=== PATIENT | female | born 1965 | race Caucasian/White ===

== ENCOUNTER 2020-03-04 10:24 | Outpatient (REF) | payer OTHER, SELFPAY | END 2020-03-04 10:25 | disposition home or self-care (01) | LOC: HO.LAB 10:24 | PROVIDERS: PCP Internal Medicine; Visit Provider Internal Medicine | DX: Z20.828 Contact with and (suspected) exposure to other viral communicable diseases (principal) | CPT/HCPCS: C9803; U0003 ==

== ENCOUNTER 2021-01-29 13:08 | Outpatient (REF) | payer BC, SELFPAY | END 2021-01-29 13:09 | disposition home or self-care (01) | LOC: HO.LAB 13:08 | PROVIDERS: Visit Provider Internal Medicine | DX: Z20.822 Contact with and (suspected) exposure to COVID-19 (principal) | CPT/HCPCS: C9803; U0003; U0005 ==

== ENCOUNTER 2021-03-25 11:07 | Outpatient (REF) | payer BC, SELFPAY ==
--- NOTE | ~2021-03-25 | MM_ITS ---
EXAMINATION: MM SCREENING DIGITAL BREAST TOMOSYNTHESIS, BILATERAL CLINICAL INFORMATION: Screening. Asymptomatic. The lifetime risk of breast cancer based on the Tyrer-Cuzick Model is 6%. COMPARISON: Mammography: 10/05/2018, 05/17/2014 TECHNIQUE: Digital breast tomosynthesis is performed in both the craniocaudal and mediolateral oblique views along with computer-aided detection (CAD). Synthesized 2D images are generated from the tomosynthesis. FINDINGS: There are scattered areas of fibroglandular density (ACR BI-RADS breast composition Category b). There are no significant masses, abnormal calcifications, or other abnormalities. Parenchymal pattern is similar to prior studies. There is no developing density or architectural abnormality. The axilla and skin contours are unremarkable. No significant changes. MM/MM tomosynthesis screening BI IMPRESSION: No mammographic evidence of malignancy. ASSESSMENT: BI-RADS 1: Negative RECOMMENDATION: Routine annual mammography screening. This patient's information was entered into a reminder system with a target due date for their next mammogram.
== END 2021-03-25 11:08 | disposition home or self-care (01) ==
LOC: HO.MAMMO 11:07
PROVIDERS: Visit Provider Internal Medicine
DX: Z12.31 Encounter for screening mammogram for malignant neoplasm of breast (principal)
CPT/HCPCS: 77063; 77067

== ENCOUNTER 2023-12-23 09:07 | Outpatient (REF) | payer BC, SELFPAY ==
[2023-12-23 14:09] LABS: MANUAL DIFF FLAG NO
[2023-12-23 14:10] LABS: Basophils Percent Auto 0.4 % (0-2); Eosinophils Absolute Auto 0.2 X10*3/uL (0.0-0.4); Hematocrit 45.1 % (37.0-47.0); Hemoglobin 14.9 g/dl (12.0-16.0); Imm Gran Abs Auto 0.03 X10*3/uL (0.00-0.03); Imm Gran Pct Auto 0.3 % (0.0-0.4); Lymphocytes Absolute Auto 3.2 X10*3/uL (1.2-4.9); Lymphocytes Percent Auto 31.6 % (20-40); Mean Corpuscular Hemoglobin 31.7 pg (27.0-33.0); Mean Platelet Volume 12.4 fL (9.4-12.3); Monocytes Absolute Auto 0.6 X10*3/uL (0.1-1.2); Monocytes Percent Auto 6.4 % (2-11); Neutrophils Absolute Auto 5.9 x10*3/uL (2.0-8.3); Neutrophils Percent Auto 59.3 % (45-73); Platelet Count 205 X10*3/uL (160-400); Red Cell Distribution Width 13.6 % (11.0-16.0)
[2023-12-23 14:40] LABS: Alanine Aminotransferase 28 U/L (0-31); Albumin Level 4.6 g/dL (3.5-5.0); Alkaline Phosphatase 122 U/L (39-117); Anion Gap 13 (12-20); Aspartate Amino Transferase 28 U/L (5-31); Bilirubin Total 0.5 mg/dL (0.0-1.0); Blood Urea Nitrogen 9 mg/dL (9-16); Calcium 10.2 mg/dL (8.4-10.2); Carbon Dioxide 27 mmol/L (22-29); Chloride 104 mmol/L (96-108); Cholesterol 126 mg/dL (<200); Estimated Glomerular Filt Rate > 60; Glucose Random 80 mg/dL (60-115); HDL Cholesterol 46 mg/dL (>40); LDL Cholesterol Calculated 53 mg/dL (<100); Potassium 3.3 mmol/L (3.3-5.1); Sodium 141 mmol/L (135-145); Total Protein 7.3 g/dL (6.5-8.0); Triglycerides 138 mg/dL (<150)
[2023-12-23 14:56] LABS: TSH reflex Free T4 0.44 uIU/mL (0.32-4.0)
[2023-12-24 08:28] LABS: HIV AB/AG Nonreactive (Nonreactive); HIV Num 1 0.04 S/CO (0.00-0.99); ~HepC Num1 0.07 S/CO (0.00-0.79); ~Hepatitis C Antibody Nonreactive (Nonreactive)
== END 2023-12-23 09:08 | disposition home or self-care (01) ==
LOC: HO.CHCLDS 09:07
PROVIDERS: Visit Provider Internal Medicine
DX: Z00.00 Encounter for general adult medical examination without abnormal findings (principal); I10 Essential (primary) hypertension; E78.00 Pure hypercholesterolemia, unspecified
CPT/HCPCS: 36415; 80053; 80061; 84443; 85025; 86803; 87389

== ENCOUNTER 2023-12-31 08:58 | Outpatient (REF) | payer BC, SELFPAY ==
--- NOTE | ~2023-12-31 | US_ITS ---
EXAMINATION: US ABDOMEN COMPLETE CLINICAL INFORMATION: Elevated alkaline phosphatase. COMPARISON: None available. TECHNIQUE: Real-time imaging of the abdominal viscera. FINDINGS: PANCREAS: Normal. ABDOMINAL AORTA: The proximal, mid, and distal segments are normal in caliber. INFERIOR VENA CAVA: Visualized portions are normal. LIVER: The liver is likely normal in size. The liver contour is normal. There is diffuse increased liver parenchymal echogenicity, consistent with hepatic steatosis. No focal hepatic lesion. There is no intrahepatic biliary duct dilatation seen. GALLBLADDER: Surgically absent. COMMON BILE DUCT: Normal in caliber measuring 1.2 cm in diameter. RIGHT KIDNEY: No hydronephrosis or renal calculi. The kidney measures 10.8 cm in maximum dimension. A benign right upper pole 1.3 cm Bosniak class I renal cyst is noted which requires no additional imaging or follow up. No solid renal masses are seen. LEFT KIDNEY: Normal. No hydronephrosis. No renal calculi or focal parenchymal lesions. The kidney measures 10.3 cm in maximum dimension. SPLEEN: Normal. The spleen measures 8.7 cm in maximum dimension. FREE FLUID: None. US/US abdomen complete IMPRESSION: Hepatic steatosis. Electronically signed by: Srinivas Hunter MD 02/26/2024 12:29 PM [facility]
== END 2023-12-31 08:59 | disposition home or self-care (01) ==
LOC: HO.HMGCX 08:58
PROVIDERS: PCP Internal Medicine; Visit Provider Internal Medicine
DX: R74.8 Abnormal levels of other serum enzymes (principal)
CPT/HCPCS: 76700

== ENCOUNTER 2024-03-24 09:44 | Outpatient (AMB) | payer BC, SELFPAY ==
--- NOTE | 2024-03-24 09:46 | A.OFFVIS_ITS ---
Vital Signs 3 03/24/24 09:57 Height 5 ft 1 in Weight 171 lb 6 oz BMI 32.4 BP 158/72 H Blood Pressure Location Lt brachial Position Sitting Pulse 64 Intake Visit Reasons: Umbilical hernia Intake Note: Patient is seen in office for evaluation of an umbilical hernia. Pt c/o: feel a lump in the umbilical area, for about a month started to notice it, feels been there for yrs, discomfort and pain when lifting, denies n/v/c, some times gets indigestion and constipation imaging:[address] [employer] Installer Required: No Accompanied by: Self / Same As Patient Allergies aspartame [ASPARTAME] Allergy (Intermediate, Unverified 03/24/24 09:53) RASH cefaclor [From CECLOR] Allergy (Unknown, Unverified 03/24/24 09:53) SWELLING clindamycin [CLINDAMYCIN] Allergy (Unknown, Unverified 03/24/24 09:53) PER H&P lorazepam [From ATIVAN] Allergy (Unknown, Unverified 03/24/24 09:53) SWELLING Medication List - Last Reconciled 03/24/24 by Evgeny Shankar MD atenolol 25 mg PO DAILY lisinopril 30 mg PO DAILY rosuvastatin 20 mg PO DAILY HPI Comments Details: 59-year-old female patient presenting with complaints of an umbilical hernia. She 1st noted the symptoms approximately 5-7 years ago however over the past month she noted increased pain associated with this lump. The lump seems to increase in size with heavy lifting and straining but does reduce with light pressure. She reports indigestion, constipation and urinary frequency but denies nausea or vomiting. She denies a previous history of hernias or hernia surgery. She cares for her who is terminal and requires total care. 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 She would like the hernia repaired as soon as possible. [facility] Medical History Tobacco use Hypercholesterolemia Essential hypertension Surgical History Hx of external ear surgery Social History Patient Tobacco Use Status: Current everyday Tobacco user Review of Systems Const All systems reviewed & are unremarkable except as noted in HPI and below Denies chills, Denies fever(s), Denies headache(s), Denies poor appetite and Denies weakness ENT Denies headache(s) Card Denies chest pain, Denies irregular heart rhythm, Denies palpitations and Denies dyspnea Resp Denies cough, Denies excessive phlegm production and Denies dyspnea GI Denies abdominal pain, Denies bloating, Denies change in bowel habits, Denies constipation, Denies heartburn, Denies diarrhea, Denies nausea and Denies vomiting Denies urinary frequency Musc Denies back pain, Denies muscle weakness and Denies numbness Skin/Breast Denies changing lesions and Denies unusual bruising Neuro Denies headache(s), Denies numbness, Denies paresthesias and Denies weakness Psych Denies anxiety and Denies depression Endo Denies palpitations Da/Lymph Denies lymphadenopathy Physical Exam Vital Signs: Last Vital Signs Pulse 64 03/24/24 09:57 BP 158/72 H 03/24/24 09:57 BMI result Body Mass Index 32.4 Const General: cooperative and no acute distress Nutritional Appearance: well nourished Orientation/consciousness: patient oriented x3 Limitations: no limitations HEENT Head: Yes normocephalic and Yes atraumatic Ears: hearing grossly normal bilaterally Resp Effort & Inspection: normal respiratory effort, no audible wheezes, no cough and no respiratory distress Cardio Jugular venous distension: no JVD GI Inspection: Yes normal to inspection and Yes Abdominal panniculus present Palpation (GI): Tenderness to palpation present (GI) periumbilically and Hernia present umbilical (Small reducible umbilical hernia measuring approximately 2 cm in diameter.) Abdomen image: 2 1. Hernia deep within the umbilicus Skin Other: Warm, dry, no rash Neuro General: patient oriented x3 Extrem General: Yes no clubbing, cyanosis or edema Assessment & Plan Assessment & Plan (1) Umbilical hernia: Code(s): K42.9 - Umbilical hernia without obstruction or gangrene Category: Medical Qualifiers: Obstruction and gangrene presence: without obstruction or gangrene Q ualified Code(s): K42.9 - Umbilical hernia without obstruction or gangrene Plan 59-year-old female patient presenting with a painful umbilical hernia which seems to be causing more symptoms over the past month. On examination she does have a reducible umbilical hernia measuring approximately 2 cm. I reviewed the procedure, risks, and alternatives for repair of this umbilical hernia with mesh and she gives her consent for the surgery. Coding Level of Care Code New Pt Level 4 (44228) Diagnoses Umbilical hernia without obstruction and without gangrene K42.9 Obstruction and gangrene presence: without obstruction or gangrene
[2024-03-24 09:57] VITALS: BP 158/72; PULSE 64; BMI 32.4
== END 2024-03-24 10:31 | disposition home or self-care (01) ==
PROVIDERS: PCP Internal Medicine; Referring Provider Internal Medicine; Visit Provider Surgery
DX: K42.9 Umbilical hernia without obstruction or gangrene (principal)
CPT/HCPCS: 99204

== ENCOUNTER 2024-04-17 09:04 | Day surgery (SDC) | payer BC, SELFPAY ==
[2024-04-13 07:36] VITALS: BMI 32.3
[2024-04-17] VITALS (8 sets, daily range): BP systolic 128–160; BP diastolic 75–94; PULSE 53–90; RESP 16; TEMP 36.1–36.5; O2SAT 96–99; BMI 31.4
--- OUTSIDE RECORDS SUMMARY | 2024-04-17 09:25 | XMS_ITS | Clinical Summary ---
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 use as directed for allergic reaction and then call 911 0.3 mL 4 Active rosuvastatin (Crestor) 20 MG tabletIndications :Wellness examination Take 1 tablet (20 mg) by mouth at bedtime. 30 tablet 11 4 Active atenolol (Tenormin) 25 MG tabletIndications :Essential hypertension Take 1 tablet (25 mg) by mouth Once per day. 30 tablet 11 4 01/17/20 25 Active lisinopril 30 MG tabletIndications :Primary hypertension Take 1 tablet (30 mg) by mouth Once per day. 30 tablet 11 4 02/03/20 25 Active Active Problems Problem Noted Date Diagnosed Date Hepatic steatosis 03/06/2024 Smoking 1/2 pack a day or less 2024 Hypercholesterolemia 03/19/2021 Essential hypertension 06/08/2011 Encounters Date Type Department Care Team Description 04/12/2024 Telephone [facility] [address] [place], [place] [phone] Ricarda Mcclellan MD chart prep 03/06/2024 10:15 AM EST Office Visit [facility] [address] [place] [address] Ricarda Mcclellan MD Umbilical hernia without obstruction and without gangrene (Primary Dx); Essential hypertension; Hepatic steatosis 03/06/2024 Travel 03/03/2024 Telephone [facility] [address] [place] [address] Ricarda Mcclellan MD Nurse Triage 02/28/2024 Telephone [facility] [address] [place] [address] Ricarda Mcclellan MD Results 02/03/2024 2:30 PM EST Clinical Support [facility] [address] [place] [address] Vladimir Camacho, GERARDO Essential hypertension 02/03/2024 Telephone [facility] [address] [place] [address] Ricarda Mcclellan MD 02/03/2024 Refill [facility] [address] [place] [address] Ricarda Mcclellan MD Primary hypertension 02/03/2024 Travel 01/31/2024 Telephone [facility] [address] [place] [address] Ricarda Mcclellan MD Reschedule 01/31/2024 Travel 2024 3:30 PM EST Office Visit [facility] [address] [place] [address] Ricarda Mcclellan MD Essential hypertension (Primary Dx); Hypercholesterolemia; Smoking 1/2 pack a day or less; Encounter for immunization 2024 Travel from Last 3 Months Immunizations Name Administration Dates Next Due Influenza Injectable Quadriv alant Preservative Free IIV4 MDCK 11/06/2022,11/08/2021 Influenza injectable quadriv alent IIV4 with preservative 11/08/2020,01/10/2019,12/03/2014 Influenza injectable quadriv alent preservative free 10/27/2019,01/10/2018,10/15/2016 Influenza, Split (incl. gurinder fied surface antigen) 05/19/2013 Influenza, seasonal, injecta ble, preservative free 12/03/2023,12/23/2015 Pneumococcal Conjugate PCV 20 2024 Tdap 08/17/2014 Zoster, Recombinant 06/12/2021,04/02/2021 Social History Tobacco Use Types Packs/Day Years Used Date Smoking Tobacco: Every Day Cigarettes Smokeless Tobacco: Never Tobacco Cessation:Ready to Q uit: No; Counseling Given: Yes Comments:1 pack a day x the last 43 years. Depression Answer Date Recorded Patient Health Questionnaire-9 Score 2 12/03/2023 Patient Health Questionnaire-9 Score 2 12/03/2023 Last PHQ-9: Questionnaire Data Not on file 0 12/03/2023 Housing Stability Answer Date Recorded What is your housing situation today? I have constantino collins 11/26/[address] you li ve. Do you have problems with any of the following? None of the above 11/26/2023 Food Insecurity Answer Date Recorded Within the past 12 months, y ou worried that your food would run out before you got money to buy more: Never True 11/26/2023 Within the past 12 months,th e food you bought just didn't last and you didn't have enough money to get more: Never True Transportation Answer Date Recorded In the past 12 months, has l ack of transportation kept you from medical appts, meetings, work or from getting things needed for daily living? No 11/26/2023 Utilities Answer Date Recorded In the past 12 months, has t he electric, gas, oil or water company threatened to shut off services in your home? No 11/26/2023 Depression Answer Date Recorded Patient Health Questionnaire-2 Score 0 12/03/2023 Internet Access Answer Date Recorded Internet Access Q1 Yes 11/26/2023 Internet Access Q2 Not on file 11/26/2023 Comments Unknown Sex and Gender Information Value Date Recorded Sex Assigned at Female 01/12/2022 10:20 AM EDT Legal Sex Female 10:20 AM EDT Gender Identity Female 01/12/2022 10:20 AM EDT Sexual Orientation Straight 01/12/2022 10 :20 AM EDT Last Filed Vital Signs Vital Sign Reading Time Taken Comments Blood Pressure 154/86 03/06/2024 10:29 AM EST Pulse 66 03/06/2024 10:29 AM EST Temperature 36.6 ??C (97.8 ??F) 03/06/2024 10:[address] Respiratory Rate 20 03/06/2024 10:29 AM EST Oxygen Saturation 98% 03/06/2024 10:29 AM EST Inhaled Oxygen Concentration - - Weight 76.7 kg (169 lb) 03/06/2024 10:29 AM EST Height 155.6 cm (5' 1.25 ) 03/06/2024 10:[address] Body Mass Index 31.67 03/06/2024 10:29 AM EST Plan of Treatment Health Maintenance Due Date Last Done Comments CT Colonography 1964 Colonoscopy 1964 FIT 1964 FOBT 1964 Sigmoidoscopy 1964 Alcohol/Substance Use Screening 1976 Hepatitis A Vaccines (1 of 2 - Risk 2-dose series) 01/16/1983 Pap Smear 01/16/1985 Mammogram 03/25/2023 03/25/2021, 04/11/2018 Cervical Cancer Screening 06/29/2023 HPV/Cotest 06/29/2023 06/28/2018 Hepatitis B Vaccines (1 of 3 - Risk 3-dose series) 2024 RSV Patients and Patients Aged 60 years or older (1 - Risk 60-74 years 1-dose series) 2024 DTaP/Tdap/Td Vaccines (2 - Td or Tdap) 08/17/2024 08/17/2014 SDOH Screening 11/25/2024 11/26/2023 Depression Screening 12/02/2024 12/03/2023, 12/03/19 24 COVID-19 Vaccine ( season) 2025 03/12/2021, 08/14/2020, 07/24/2020 Postponed from 11/14/2023 (Patient Refused) Tobacco Screening 03/06/2025 03/06/2024 Colorectal Cancer Screening 12/10/2026 FIT DNA/Cologuard 12/10/2026 12/11/2023 Lipid Panel 12/22/2028 12/23/2023, 0404/2021, 03/18/2021 Zoster Vaccines Completed 06/12/2021, 04/02/2021 Influenza Vaccine Completed 12/03/2023, , 11/08/2021, Additional history exists HIV Screening Completed 12/23/2023, 03/18/2021 Hepatitis C Screening Completed 12/23/2023, 022 Pneumococcal Vaccine: 50+ Years Completed 2024 HIB Vaccines Aged Out No longer eligi ble based on patient's age to complete this topic HPV Vaccines Aged Out No longer eligi ble based on patient's age to complete this topic IPV Vaccines Aged Out No longer eligi ble based on patient's age to complete this topic Meningococcal Vaccine Aged Out No malaika ynes eligible based on patient's age to complete this topic RSV under 20 months Aged Out No longe r eligible based on patient's age to complete this topic Rotavirus Vaccines Aged Out No longer eligible based on patient's age to complete this topic Procedures Procedure Name Priority Date/Time Associated Diagnosis Comments HEPATITIS C AB W/REFL TO HCV RNA, QN, PCR Routine 12/23/2023 9:09 AM EDT Wellness examination HIV 1/2 ANTIGEN/ANTIBODY, FOURTH GENERATION W/RFL Routine 12/23/2023 9:09 AM EDT Wellness examination LIPID PANEL, STANDARD Routine 12/23/2023 9:09 AM EDT Wellness examination LAB COLOGUARD?? COLON CANCER SCREEN Routine 12/11/2023 11:04 AM EDT Colon cancer screening MAMMOGRAM GENERIC Routine 03/25/2021 11: 30 AM EST [facility] HISTORICAL HPV MRNA E6/E7 Routine 06/28/2018 9:42 AM EDT from Last 3 Months or Most Recently Relevant to Health Maintenance Results * Hepatitis C Antibody with Reflex to HCV, RNA, Quantitative, Real-Time PCR (12/23/2023 9:09 AM EDT) [facility] Hepatitis C Antibody Nonreactive Nonreactive [facility] Comment:Antibodies to HCV no t detected; does not exclude early acuteHCV infection. Blood Venous blood specimen / Unknown 12/23/2023 9:09 AM EDT 12/23/2023 2:02 PM EDT us Ricarda Mcclellan MD LAB BLOOD ORDERABLES Final Result Performing Organization Address City/[facility]/ZIP Co de Phone Number [facility] [address] [place] [address] [phone] * HIV-1/2 Antigen and Antibodies, Fourth Generation, with Reflexes (12/23/2023 9:09 AM EDT) [facility] HIV AB/AG Nonreactive Nonreactive [facility] Comment:HIV-1 p24 Ag and/or HIV-1/HIV-2 Ab not detected.A test result that is nonreactive does not exclude thepossibility of exposure to or infection with HIV-1 and/orHIV-2. Nonreactive results in this assay for individualswith prior exposure to HIV-1 and/or HIV-2 may be due toantigen and antibody levels that are below the limit ofdetection of this assay.[employer] HIV Ag/Ab Combo assay result andsupplemental assay results should be interpreted inconjunction with the patient's clinical presentation,history and other laboratory results. If the results areinconsistent with clinical evidence, additional testing issuggested to confirm the result. Blood Venous blood specimen / Unknown 12/23/2023 9:09 AM EDT 12/23/2023 2:02 PM EDT us Ricarda Mcclellan MD LAB BLOOD ORDERABLES Final Result Performing Organization Address City/[facility]/ZIP Co de Phone Number [facility] [address] [place] [address] [phone] * Lipid Panel, Standard (12/23/2023 9:09 AM EDT) Triglycerides 138 <150 mg/dL [facility] Comment:Desirable Triglyceri de: less than 150 mg/dLBorderline High Triglyceride 150-199 mg/dLHigh Triglyceride: 200-499 mg/dLVery High Triglyceride: greater than or equal to 5OO mg/dL Cholesterol 126 <200 mg/dL [facility] Comment:Desirable Cholestero l: less than 200 mg/dLBorderline High Cholesterol: 200-239 mg/dLHigh Cholesterol: greater than 239 mg/dL LDL Cholesterol Calculated 53 <100 mg/dL [facility] Comment:Desirable LDL: less than 100 mg/dLNear Optimal/Above Optimal LDL: 110- 129 mg/dLBorderline High LDL: 130-159 mg/dLHigh LDL: 160-189 mg/dLVery High LDL: greater than or equal to 190 mg/dL HDL Cholesterol 46 >40 mg/dL [facility] Comment:Desirable HDL: great er than 40 mg/dL Note: This HDL assay may give artificially low results in patients with liver disease. Blood Venous blood specimen / Unknown 12/23/2023 9:09 AM EDT 12/23/2023 2:02 PM EDT Ricarda Mcclellan MD LAB BLOOD ORDERABLES Final Result [facility] [address] [place] [phone] * Cologuard?? colon cancer screening (12/11/2023 11:04 AM EDT) Cologuard Result Negative Negative 12/16/19 7:20 AM EDT [facility] (CLIA #:[id number]) Comment: NEGATIVE TEST RESULT. A negative Cologuard result indicates a low likelihood that a colorectal cancer (CRC) or advanced adenoma (adenomatous polyps with more advanced pre-malignant features) ??is present. The chance that a person with a negative Cologuard test has a colorectal cancer is less than 1 in 1500 (negative predictive value >99.9%) or has an ??advanced adenoma is less than ??5.3% (negative predictive value 94.7%). These data are based on a prospective cross-sectional study of 10,000 individuals at average risk for colorectal cancer who were screened with both Cologuard and colonoscopy. (Chan Deng al, N Engl J Med 2014;370(14):1286- 1297) The normal value (reference range) for this assay is negative. COLOGUARD RE-SCREENING RECOMMENDATION: Periodic colorectal cancer screening is an important part of preventive healthcare for asymptomatic individuals at average risk for colorectal cancer. ??Following a negative Cologuard result, the [place] [employer] Society and U.S. Multi-Society Task Force screening guidelines recommend a Cologuard re-screening interval of 3 years. References: [place] [employer] Guideline for Colorectal Cancer Screening: https://www.cancer.org/cancer/utjqq-jwgzhf-yjcqkt/qagluzmob-qawliaeqk-cpnfrsh/ac s-rec ommendations.html.; Brian DK, Sena DOE, Arsh UmanaK, Colorectal Cancer Screening: Recommendations for Physicians and Patients from the U.S. Multi-Society Task Force on Colorectal Cancer Screening , Am J Gastroenterology 2017; 112:8094-6493. TEST DESCRIPTION: Composite algorithmic analysis of stool DNA-biomarkers with hemoglobin immunoassay. ?? Quantitative values of individual biomarkers are not reportable and are not associated with individual biomarker result reference ranges. Cologuard is intended for colorectal cancer screening of adults of either sex, 45 years or older, who are at average-risk for colorectal cancer (CRC). Cologuard has been approved for use by the U.S. FDA. The performance of Cologuard was established in a cross sectional study of average-risk adults aged 50-84. Cologuard performance in patients ages 45 to 49 years was estimated by sub-group analysis of near-age groups. Colonoscopies performed for a positive result may find as the most clinically significant lesion: colorectal cancer [4.0%], advanced adenoma (including sessile serrated polyps greater than or equal to 1cm diameter) [20%] or non- advanced adenoma [31%]; or no colorectal neoplasia [45%]. These estimates are derived from a prospective cross-sectional screening study of 10,000 individuals at average risk for colorectal cancer who were screened with both Cologuard and colonoscopy. (Imperiale T. et al, N Engl J Med 2014;370(14):3634-6319.) Cologuard may produce a false negative or false positive result (no colorectal cancer or precancerous polyp present at colonoscopy follow up). A negative Cologuard test result does not guarantee the absence of CRC or advanced adenoma (pre-cancer). The current Cologuard screening interval is every 3 years. ([place] [employer] Society and U.S. Multi-Society Task Force). Cologuard performance data in a 10,000 patient pivotal study using colonoscopy as the reference method can be accessed at the following location: [email or web address]/results. Additional description of the Cologuard test process, warnings and precautions can be found at [email or web address]. Stool specimen (specimen) 12/11/2023 11:04 AM EDT 12/13/2023 11:00 AM EDT us Ricarda Mcclellan MD LAB MOLECULAR DIAGNOSTICS O RDERABLES Final Result [facility] (CLIA #:[id number]) [address] [place] [address], * Mammography Report 1 (03/25/2021 11:30 AM EST) Anatomical Region Laterality Modality Breast Bilateral Mammography 03/25/2021 11:3 0 AM EST Narrative 03/26/2021 2:08 PM EST Refer to the Notes tab for result details [facility] Procedure: Mammography Report 1 Procedure Note ProviderCatalina MD - 06/07/2022 Refer to the Notes tab for result details [facility] Procedure: Mammography Report 1 us Ricarda Mcclellan MD IMG BI PROCEDURES Final Res ult * HPV mRNA E6/E7 (06/28/2018 9:42 AM EDT) HPV mRNA E6/E7 Not Detected NOT DETECTED [facility] Comment: This test was performed using the APTIMA(R) HPV Assay ([employer] This assay detects E6/E7 viral messenger RNA (mRNA) from 14 high-risk HPV types (16,18,31,33,35,39,45,51, 52,56,58,59,66,68). For additional information please refer to: http://education.[employer]/faq/BJU505r5 (This link is being provided for informational/ educational purposes only.) The analytical performance characteristics of this assay have been determined by [employer] [place], [place]. The modifications have not been cleared or approved by the FDA. This assay has been validated pursuant to the CLIA regulations and is used for clinical purposes. Test Performed by [facility], [employer], [address] [place] [address] Win Hightower M.D., Ph.D., Director of Laboratories , CLIA [id number] Please note: ??Effective 11/25/2015, HPV testing will be performed using [employer]'s APTIMA test which targets mRNA. Detecting mRNA instead of DNA, as in older methods, offers significant improvements in specificity. 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
--- OUTSIDE RECORDS SUMMARY | 2024-04-17 09:25 | XMS_ITS | Encounter Summary ---
Author Organization [employer] Address [address] [place] [address] 7t [place] [address] Care Team Providers Care Supervisor/Port Director Name Role Phone Ricarda Mcclellan MD Primary Care Provider [phone] Encounter Details Date Type Department Care Team ([facility] st Contact Info) Description 09/21/2022 Orders Only [facility] CHC MED & PEDS [address] [place] [address] Loretta Cruz LPN Social History Tobacco Use Types Packs/Day Years Used Date Smoking Tobacco: Never Assessed Comments Unknown Sex and Gender Information Value Date Recorded Sex Assigned at Female 01/12/2022 10:20 AM EDT Legal Sex Female 10:20 AM EDT Gender Identity Female 01/12/2022 10:20 AM EDT Sexual Orientation Straight 01/12/2022 10 :20 AM EDT documented as of this encounter Plan of Treatment Not on file documented as of this encounter Visit Diagnoses Not on filedocumented in this encounter Care Teams Supervisor/Port Director Relationship Specialty Start Date End Date Ricarda Mcclellan MD [address] [place] [address] PCP - General Internal Medicine 04/10/13 documented as of this encounter
--- OUTSIDE RECORDS SUMMARY | 2024-04-17 09:25 | XMS_ITS | Encounter Summary ---
Author Organization [employer] Address [address] [place] [address] 7t [place] [address] Care Team Providers Care Homeopathic Doctor Name Role Phone Ricarda Mcclellan MD Primary Care Provider [phone] Reason for Referral * Imaging (Routine) - Closed Specialty Diagnoses / Procedures Referred By Contsathish menjivar Referred To Contact Radiology Diagnoses Alkaline phosphatase elevation Procedures US Abdomen Complete Ricarda Mcclellan MD [address] [place] [address] Phone: tel: fax: [address] Phone: tel: fax: Referral ID Status Reason Start Date Expiration Date Visits Re quested Visits Authorized [id number] Closed 12/23/2023 12/22/2024 1 1 Encounter Details Date Type Department Care Team ([facility] st Contact Info) Description 12/23/2023 Orders Only [facility] CHC MED & PEDS [address] [place], [place] [phone] Ricarda Mcclellan MD [address] [place], [place] [phone] Primary hypertension (Primary Dx); Alkaline phosphatase elevation Social History Tobacco Use Types Packs/Day Years Used Date Smoking Tobacco: Every Day Cigarettes Smokeless Tobacco: Never Comments:1 pack a day x the last [...] on file documented as of this encounter Procedures Procedure Name Priority Date/Time Associated Diagnosis Comments US ABDOMEN COMPLETE Routine 12/31/2023 9 :01 AM EDT Alkaline phosphatase elevation documented in this encounter Results * US Abdomen Complete (12/31/2023 9:01 AM EDT) Anatomical Region Laterality Modality Abdomen Ultrasound 12/31/2023 9:01 AM EDT Narrative 02/26/2024 12:32 PM EST ? [facility] ?[address] ? [place] [address] ? Ultrasound Report ? Signed ? Patient: Snape,Zeny ?MR#: [id number] ? : 1965 ?Acct:[id number] ? Age/Sex: 58 / F ?ADM Date: 12/31/23 ? Loc: HO.HMGCX ? Attending Dr: Ricarda Mcclellan MD ? Ordering Physician: Ricarda Mcclellan MD ?? Date of Service: 12/31/23 ?? Procedure(s): US abdomen complete ?? Accession Number(s): [id number] ? cc: Ricarda Mcclellan MD ? EXAMINATION: ?? US ABDOMEN COMPLETE ? CLINICAL INFORMATION: ?? Elevated alkaline phosphatase. ? COMPARISON: ?? None available. ? TECHNIQUE: ?? Real-time imaging of the abdominal viscera. ? FINDINGS: ? PANCREAS: Normal. ? ABDOMINAL AORTA: The proximal, mid, and distal segments are normal in ?? caliber. ? INFERIOR VENA CAVA: Visualized portions are normal. ? LIVER: The liver is likely normal in size. The liver contour is normal. ?? There is diffuse increased liver parenchymal echogenicity, consistent ?? with hepatic steatosis. ??No focal hepatic lesion. There is no ?? intrahepatic biliary duct dilatation seen. ? GALLBLADDER: Surgically absent. ? COMMON BILE DUCT: Normal in caliber measuring 1.2 cm in diameter. ? RIGHT KIDNEY: No hydronephrosis or renal calculi. The kidney measures ?? 10.8 cm in maximum dimension. A benign right upper pole 1.3 cm Bosniak ?? class I renal cyst is noted which requires no additional imaging or ?? follow up. No solid renal masses are seen. ? LEFT KIDNEY: Normal. No hydronephrosis. No renal calculi or focal ?? parenchymal lesions. The kidney measures 10.3 cm in maximum dimension. ? SPLEEN: Normal. The spleen measures 8.7 cm in maximum dimension. ? FREE FLUID: None. ? US/US abdomen complete ?? IMPRESSION: ?? Hepatic steatosis. ? Electronically signed by: ??Srinivas Hunter MD ??02/26/2024 12:29 PM EST ?? RP ? Dictated By: ?Srinivas Hunter MD ? Signed By: ?<Electronically signed by Srinivas Hunter MD in OV> ? 02/26/24 1229 ? DD/ 0901 ? TD/TT: 12/31/23 0918 ? Seed Cone Picker: SS ? Procedure Note Donotuseinterpreter, Image - 02/26/2024 [facility] [place] [address] Ultrasound Report Signed Patient: Alyssia Bailon#: [id number] : 1965Acct:[id number] Age/Sex: 58 / FADM Date: 12/31/23 Loc: HO.HMGCX Attending Dr: Ricarda Mcclellan MD Ordering Physician: Ricarda Mcclellan MD Date of Service: 12/31/23 Procedure(s): US abdomen complete Accession Number(s): [id number] cc: Ricarda Mcclellan MD EXAMINATION: US ABDOMEN COMPLETE CLINICAL INFORMATION: Elevated alkaline phosphatase. COMPARISON: None available. TECHNIQUE: Real-time imaging of the abdominal viscera. FINDINGS: PANCREAS: Normal. ABDOMINAL AORTA: The proximal, mid, and distal segments are normal in caliber. INFERIOR VENA CAVA: Visualized portions are normal. LIVER: The liver is likely normal in size. The liver contour is normal. There is diffuse increased liver parenchymal echogenicity, consistent with hepatic steatosis. No focal hepatic lesion. There is no intrahepatic biliary duct dilatation seen. GALLBLADDER: Surgically absent. COMMON BILE DUCT: Normal in caliber measuring 1.2 cm in diameter. RIGHT KIDNEY: No hydronephrosis or renal calculi. The kidney measures 10.8 cm in maximum dimension. A benign right upper pole 1.3 cm Bosniak class I renal cyst is noted which requires no additional imaging or follow up. No solid renal masses are seen. LEFT KIDNEY: Normal. No hydronephrosis. No renal calculi or focal parenchymal lesions. The kidney measures 10.3 cm in maximum dimension. SPLEEN: Normal. The spleen measures 8.7 cm in maximum dimension. FREE FLUID: None. US/US abdomen complete IMPRESSION: Hepatic steatosis. Electronically signed by: Srinivas uHnter MD 02/26/2024 12:29 PM [facility] Dictated By: Srinivas Hunter MD Signed By: <Electronically signed by Srinivas Hunter MD in OV> 02/26/24 1229 DD/ 0901 TD/TT: 12/31/2318 Seed Cone Picker: SS Ricarda Mcclellan MD IM US PROCEDURES Final Res ult documented in this encounter Visit Diagnoses Diagnosis Primary hypertension- Primary Unspecified essential hypertension Alkaline phosphatase elevation Other nonspecific abnormal serum enzyme levels documented in this encounter Additional Health Concerns Assessment Noted Time PHQ-9 Depression Total Score: 2 12/03/19 2:34 PM EDT documented as of this encounter Care Teams Homeopathic Doctor Relationship Specialty Start Date End Date Ricarda Mcclellan MD [address] [place] [address] PCP - General Internal Medicine 04/10/13 documented as of this encounter
--- OUTSIDE RECORDS SUMMARY | 2024-04-17 09:25 | XMS_ITS | Encounter Summary ---
Author Organization [employer] Address [address] [place] [address] 7t [place] [address] Care Team Providers Care Pediatric Physical Therapy Assistant Name Role Phone Ricarda Mcclellan MD Primary Care Provider [phone] Encounter Details Date Type Department Care Team ([facility] st Contact Info) Description 07/20/2022 Orders Only [facility] CHC MED & PEDS [address] [place], [place] [phone] Moraima Bowman LPN Social History Tobacco Use Types Packs/Day [...] on filedocumented in this encounter Care Teams Pediatric Physical Therapy Assistant Relationship Specialty Start Date End Date Ricarda Mcclellan MD [address] [place] [address] PCP - General Internal Medicine 04/10/13 documented as of this encounter
--- OUTSIDE RECORDS SUMMARY | 2024-04-17 09:25 | XMS_ITS | Encounter Summary ---
Author Organization [employer] Address [address] [facility] 7t [place] [address] Care Team Providers Care Amf Mechanic Name Role Phone Ricarda Mcclellan MD Primary Care Provider [phone] Reason for Visit * Reason Onset Date Comments chart prep 04/12/2024 Encounter Details Date Type Department Care Team ([facility] Contact Info) Description 04/12/2024 Telephone [facility] CHC MED & PEDS [address] [place], [place] [phone] Ricarda Mcclellan MD [address] [place] [address] chart prep Social History Tobacco Use Types Packs/Day Years [...] AM EDT documented as of this encounter Miscellaneous Notes * Telephone Encounter - Ha Sandoval [place] - 04/12/2024 3:56 PM EST Chart Prep Labs: done Images: done Vaccines due: yes Referrals: complete Screenings: pap smear Overdue care gaps: Sbirt, SDOH, PHQ-9 documented in this encounter Plan of Treatment Not on file documented as of this encounter Visit Diagnoses Not on filedocumented in this encounter Additional Health Concerns Assessment Noted Time PHQ-9 Depression Total Score: 2 12/03/19 24 2:34 PM EDT documented as of this encounter Care Teams Amf Mechanic Relationship Specialty Start Date End Date Ricarda Mcclellan MD [address] [place] [address] PCP - General Internal Medicine 04/10/13 documented as of this encounter
--- OUTSIDE RECORDS SUMMARY | 2024-04-17 09:25 | XMS_ITS | Encounter Summary ---
Author Organization [employer] Address [address] [place] [address] 7[address] [place] [address] Care Team Providers Care Form Tamper Operator Name Role Phone Ricarda Mcclellan MD Primary Care Provider [phone] Reason for Visit * Reason Comments Med Refill Encounter Details Date Type Department Care Team ([facility] st Contact Info) Description 09/07/2022 Refill [facility] CHC MED & PEDS [address] [place], [place] [phone] Ricarda Mcclellan MD [address] [place] [address] Social History Tobacco Use Types Packs/Day Years [...] on filedocumented in this encounter Care Teams Form Tamper Operator Relationship Specialty Start Date End Date Ricarda Mcclellan MD [address] [place] [address] PCP - General Internal Medicine 04/10/13 documented as of this encounter
--- OUTSIDE RECORDS SUMMARY | 2024-04-17 09:25 | XMS_ITS | Encounter Summary ---
Author Organization [employer] Address [address] [place] [address] 7t [place] [address] Care Team Providers Care Fly Raiser Lockstitch Name Role Phone Ricarda Mcclellan MD Primary Care Provider [phone] Reason for Visit * Reason Comments Med Refill Encounter Details Date Type Department Care Team ([facility] st Contact Info) Description 06/02/2023 Refill [facility] CHC MED & PEDS [address] [place], [place] [phone] Ricarda Mcclellan MD [address] [place] [address] Social History Tobacco Use Types Packs/Day Years [...] on filedocumented in this encounter Care Teams Fly Raiser Lockstitch Relationship Specialty Start Date End Date Ricarda Mcclellan MD [address] [place] [address] PCP - General Internal Medicine 04/10/13 documented as of this encounter
--- NOTE | 2024-04-17 11:00 | HO.ANESPROP2 ---
HPI - Anesthesia Eval Consult details Narrative: 59 yo F presenting for umbilical hernia repair with mesh PMFSH Active Problems Active Problems: All Active Problems Umbilical hernia (Acute) Tobacco use (Acute) Hypercholesterolemia (Acute) Essential hypertension (Acute) Serous otitis media (Acute) Tick bite (Acute) Past Medical History Medical History Tobacco use Hypercholesterolemia Essential hypertension Family History Family history of problems with anesthesia: No Surgical History Surgical History Hx of external ear surgery History of Problems with Anesthesia: No Social History Social History Patient Tobacco Use Status: Current everyday Tobacco user Tobacco use type: Cigarette Cigarette Packs Per Day: 1 Cigarettes Per Day: 20.0 Use of substances other than those prescribed or required for medical reasons: Yes Substance Use Type Other:: Last smoked 04/15, exposed to second hand 2/ Advance Directives: No Advance Directives Information Provided: Yes Meds Allergies Allergy/AdvReac Type Severity Reaction Status Date / Time aspartame [ASPARTAME] Allergy Intermediate RASH Verified 04/17/24 10:40 cefaclor [From CECLOR] Allergy Unknown SWELLING Verified 04/17/24 10:40 clindamycin [CLINDAMYCIN] Allergy Unknown PER H&P Verified 04/17/24 10:40 lorazepam [From ATIVAN] Allergy Unknown SWELLING Verified 04/17/24 10:40 idiopathic anaphylaxis Allergy Severe Anaphylaxis Uncoded 04/17/24 10:40 Active Medications: Current Medications Vancomycin HCl 1,000 mg/ (Sodium Chloride) 270 mls @ 270 mls/hr IV PREOP ONE Stop: 04/17/24 11:33 Lactated Ringer's (Lr) 1,000 mls @ 100 mls/hr IVCONT .Q10H [facility] Consult (Consult Rx Vancomycin Dosing) 1 each MISCELLANE DAILY PRN PRN Reason: Consult order Home Medications ?Medication ?Instructions ?Recorded ?Confirmed ?Last Taken ?Type atenolol 25 mg tablet 25 mg PO DAILY 03/24/24 04/17/24 04/17/24 07:30 History lisinopril 10 mg tablet 30 mg PO DAILY 03/24/24 04/17/24 04/17/24 07:30 History rosuvastatin 20 mg tablet 20 mg PO DAILY 03/24/24 04/17/24 Unknown History Zyrtec 04/17/24 04/17/24 Unknown History epinephrine 0.3 mg/0.3 mL IM 04/17/24 Unknown History injection, auto-injector Exam Exam Date and Time: 04/17/34 1100 Height,Weight and Vital Signs: Height 5 ft 1 in Weight 75.296 kg Last Vital Signs Temp 97.7 F 04/17/24 10:57 Pulse 53 04/17/24 10:57 Resp 16 04/17/24 10:57 BP 160/91 H 04/17/24 10:57 Pulse Ox 98 04/17/24 10:57 O2 Del Method Room Air 04/17/24 10:57 Airway Mallampati Class: II TM Dist: >3cm Neck ROM: Full Loose/Missing/Broken Teeth: No (patient denies any loose or broken teeth) Heart: S1S2 Lungs: CTAB Assessment and Plan Assessment Anesthesia Assessment: Anesthesia Plan Discussed and Chart Reviewed Final Anesthetic Review Family History of Problems with Anesthesia: No History of Problems with Anesthesia: No NPO: Yes ASA Class: II Final Preanesthetic Review: No Changes in Pt Med Stat, Meds/Allgs Chart Reviewed, Consent Obtained/Reviewed and Anes Risks/Benef Reviewed Patient Risk: Low Procedure Risk: Low Anesthetic Plan Anesthetic Plan: GA and Agree w/ Assess. and Plan Disposition: Standard PACU
[2024-04-17] MEDS: Lactated Ringers 1,000 ML 100 ML IVCONT (11:09)
[2024-04-17] MEDS: vancomycin HCL 1,000 MG in 0.9 % Sodium Chloride 250 ML 270 MG IV (11:15)
--- NOTE | 2024-04-17 11:30 | MHC.SHP ---
Pre-Procedural Eval Section A - 24 Hr Update-Section A only Date of Service: 04/17/24 The patient is an INPATIENT: No Changes since office visit: Yes Patient answered all questions; No Cold of Flu in the past 2 weeks, No New Medical Problems and No Changes in Medication The patient has been examined within 24 hours of the surgical procedure. The History & Physical has been completed within 30 days and I have reviewed it.: Yes Section B - Complete if H&P > 30 days Chief Complaint: Umbilical hernia without obstruction or gangrene Allergies: Allergies Allergy/AdvReac Type Severity Reaction Status Date / Time aspartame [ASPARTAME] Allergy Intermediate RASH Verified 04/17/24 10:40 cefaclor [From CECLOR] Allergy Unknown SWELLING Verified 04/17/24 10:40 clindamycin [CLINDAMYCIN] Allergy Unknown PER H&P Verified 04/17/24 10:40 lorazepam [From ATIVAN] Allergy Unknown SWELLING Verified 04/17/24 10:40 idiopathic anaphylaxis Allergy Severe Anaphylaxis Uncoded 04/17/24 10:40 Plan Diagnosis/Plan: Unchanged I have reviewed the history and physical and performed a pertinent physical examination on my patient. No changes have occurred unless specified. Time Spent With Patient Time: Total time managing care of this patient today ____ minutes.
--- NOTE | 2024-04-17 12:38 | P.OP_ITS ---
Operative Note Operative Note Date of Service: 04/17/24 Narrative: Preoperative diagnosis: Umbilical hernia, reducible Postoperative diagnosis: Same Procedure: Repair of umbilical hernia with mesh Surgeon: Evgeny Shankar MD Athletic Equipment Custodian: KARTIK Singh Anesthesia: General LMA Indications for procedure: 59-year-old female patient presenting with a painful lump in the umbilicus found to have a reducible umbilical hernia Operative findings: Small umbilical hernia measuring approximately 2 cm in diameter repaired using a 4.3 cm round Ventralex mesh Specimen: None Estimated blood loss: 5 mL Complications: None Procedure details: Patient was brought to the OR and placed in a supine position. After administering general anesthesia the patient's abdomen was prepped with ChloraPrep and draped in a sterile fashion. A surgical time-out was called the consent confirmed. Patient received preoperative antibiotics and Venodyne boots were in place. Local anesthesia was infiltrated over the umbilicus. A curvilinear incision was then made with a scalpel over the um bilicus in a transverse fashion and carried out through subcutaneous tissue up to the hernia sac. The umbilical skin was then lifted off the fascia using electrocautery. The umbilical defect was then dissected down to the fascia. A preperitoneal space was then created using electrocautery. A 4.3 cm round Ventralex mesh was then obtained. This was deployed within the preperitoneal space and secured in 4 quadrants using a 0 Tycron suture. Fascia was then closed over the mesh using a [id number] 0 Tycron suture. Wounds were then irrigated with saline solution and suctioned dry. Additional local was infiltrated into the fascia at this time. Umbilical skin was then reapproximated to the fascia using a 3-0 Polysorb suture. Dermis was reapproximated using interrupted 3-0 Polysorb sutures. Skin was closed using a running subcuticular 4-0 Polysorb suture. Steri-Strips 4 x 4 gauze and Tegaderm were then applied. The patient tolerated the procedure well. Sponge, instrument, and needle counts reported as correct. The patient was transferred to PACU in stable condition.
== END 2024-04-17 14:20 | disposition home or self-care (01) ==
PROVIDERS: PCP Internal Medicine; Visit Provider Surgery
PROC: (CPT 49591; principal; 2024-04-17 12:10)
DX: K42.9 Umbilical hernia without obstruction or gangrene (principal); K30 Functional dyspepsia; K59.00 Constipation, unspecified; R35.0 Frequency of micturition; I10 Essential (primary) hypertension; E78.00 Pure hypercholesterolemia, unspecified; Z79.899 Other long term (current) drug therapy; Z88.1 Allergy status to other antibiotic agents; Z88.8 Allergy status to other drugs, medicaments and biological substances; F17.210 Nicotine dependence, cigarettes, uncomplicated
CPT/HCPCS: 49591; C1781; C9088; J1100; J2003; J2405; J2704; J3010; J3370

== ENCOUNTER → 2024-04-17 09:04 | Outpatient (BNV) | payer BC, SELFPAY | PROVIDERS: PCP Internal Medicine; Visit Provider Surgery | DX: K42.9 Umbilical hernia without obstruction or gangrene (principal) | CPT/HCPCS: 49591 ==

== ENCOUNTER 2024-05-04 08:35 | Outpatient (AMB) | payer BC, SELFPAY ==
--- NOTE | 2024-05-04 08:42 | A.OFFVIS_ITS ---
Intake Visit Reasons: umbilical hernia repair Intake Note: Patient is seen in office for post op assessment post umbilical hernia repair. Pt c/o: no concerns. Steri strips intact. No longer taking rx pain meds. surgery:04/17/24 Nutritional Health Coach Required: No Accompanied by: Self / Same As Patient Allergies aspartame [ASPARTAME] Allergy (Intermediate, Verified 05/04/24 08:45) RASH cefaclor [From CECLOR] Allergy (Unknown, Verified 05/04/24 08:45) SWELLING clindamycin [CLINDAMYCIN] Allergy (Unknown, Verified 05/04/24 08:45) PER H&P lorazepam [From ATIVAN] Allergy (Unknown, Verified 05/04/24 08:45) SWELLING idiopathic anaphylaxis Allergy (Severe, Uncoded 05/04/24 08:45) Anaphylaxis HPI Comments Details: Patient returns approximately 2 weeks following repair of an umbilical hernia with mesh. She tolerated the procedure well and denies any abdominal pain. Denies any bleeding or discharge from the incision. [facility] Medical History (Updated 03/24/24 @ 10:13 by Evgeny Shankar MD) Tobacco use Hypercholesterolemia Essential hypertension Surgical History (Updated 04/24/24 @ 11:49 by DAVID Chisholm) History of umbilical hernia repair (04/17/24) Hx of external ear surgery Social History Patient Tobacco Use Status: Current everyday Tobacco user Tobacco use type: Cigarette Cigarette Packs Per Day: 1 Cigarettes Per Day: 20.0 Physical Exam Const General: healthy appearing Nutritional Appearance: well nourished Resp Effort & Inspection: normal respiratory effort GI Other: Umbilical incision is clean, dry, and intact without redness or discharge. No hernia noted with Valsalva maneuvers. Assessment & Plan Assessment & Plan (1) Umbilical hernia: Code(s): K42.9 - Umbilical hernia without obstruction or gangrene Category: Medical Qualifiers: Obstruction and gangrene presence: without obstruction or gangrene Qualified Code(s): K42.9 - Umbilical hernia without obstruction or gangrene Plan 59-year-old female patient status post repair of an umbilical hernia approximately 2 weeks ago. Wounds are healing nicely without any evidence of infection. She should continue to avoid lifting greater than 10 lb until 05/15/2024 after which she may return to normal activity. She should follow up as needed. Coding Level of Care Code Global (39033) Diagnoses Umbilical hernia without obstruction and without gangrene K42.9 Obstruction and gangrene presence: without obstruction or gangrene
--- OUTSIDE RECORDS SUMMARY | 2024-05-04 09:01 | XMS_ITS | Encounter Summary ---
Author Organization [employer] Address [address] [place] [address] 7t [place] [address] Care Team Providers Care Him Specialist Name Role Phone Ricarda Mcclellan MD Primary Care Provider [phone] Encounter Details Date Type Department Care Team ([facility] st Contact Info) Description 07/20/2022 Orders Only [facility] CHC MED & PEDS [address] [place], [place] [phone] Moraima Bowman LPN Social History Tobacco Use [...] on filedocumented in this encounter Care Teams Him Specialist Relationship Specialty Start Date End Date Ricarda Mcclellan MD [address] [place] [address] PCP - General Internal Medicine 04/10/13 documented as of this encounter
--- OUTSIDE RECORDS SUMMARY | 2024-05-04 09:01 | XMS_ITS | Encounter Summary ---
Author Organization [employer] Address [address] [place] [address] 7t [place] [address] Care Team Providers Care Student Teacher Name Role Phone Ricarda Mcclellan MD Primary Care Provider [phone] Reason for Referral * Imaging (Routine) - Closed Specialty Diagnoses / Procedures Referred By Contsathish menjivar Referred To Contact Radiology Diagnoses Alkaline phosphatase elevation Procedures US Abdomen Complete Ricarda Mcclellan MD [address] [place] [address] Phone: tel: fax: [address] Phone: tel: fax: Referral ID Status Reason Start Date Expiration Date Visits Re quested Visits Authorized [id number] Closed 12/23/2023 12/22/2024 1 1 Encounter Details Date Type Department Care Team ([facility] st Contact Info) Description 12/23/2023 Orders Only [facility] CHC MED & PEDS [address] [place], [place] [phone] Ricarda Mcclellan MD [address] [place], [place] [phone] Primary hypertension (Primary Dx); Alkaline phosphatase elevation [...] Adult Primary Care ?[address] ? [place] [address] ? Ultrasound Report ? Signed ? Patient: Snape,Zeny ?MR#: [id number] ? : 1965 ?Acct:[id number] ? Age/Sex: 58 / F ?ADM Date: 12/31/23 ? Loc: HO.HMGCX ? Attending Dr: Ricarda Mcclellan MD ? Ordering Physician: Ricarda Mcclellan MD ?? Date of Service: 12/31/23 ?? Procedure(s): US abdomen complete ?? Accession Number(s): [id number] ? cc: Ricarda Mcclellan MD ? EXAMINATION: [...] DD/ 0901 ? TD/TT: 12/31/23 0918 ? Short Order Cook: SS ? Procedure Note Donotuseinterpreter, Image - 02/26/2024 [facility] [place] Primary Care [facility] [place] [address] Ultrasound Report Signed Patient: Alyssia Bailon#: [id number] : 1965Acct:[id number] Age/Sex: 58 / FADM Date: 12/31/23 Loc: HO.HMGCX Attending Dr: Ricarda Mcclellan MD Ordering Physician: Ricarda Mcclellan MD Date of Service: 12/31/23 Procedure(s): US abdomen complete Accession Number(s): [id number] cc: Ricarda Mcclellan MD EXAMINATION: US ABDOMEN [...] IMPRESSION: Hepatic steatosis. Electronically signed by: Srinivas Hunter MD 02/26/2024 12:29 PM [facility] [place] Dictated By: Srinivas Hunter MD Signed By: <Electronically signed by Srinivas Hunter MD in OV> 02/26/24 1229 DD/ 0901 TD/TT: 12/31/2318 Short Order Cook: SS Ricarda Mcclellan MD IM US PROCEDURES Final Res ult documented in this encounter Visit Diagnoses Diagnosis Primary hypertension- Primary Unspecified essential hypertension Alkaline phosphatase elevation Other nonspecific abnormal serum enzyme levels documented in this encounter Additional Health Concerns Assessment Noted Time PHQ-9 Depression Total Score: 2 12/03/19 2:34 PM EDT documented as of this encounter Care Teams Student Teacher Relationship Specialty Start Date End Date Ricarda Mcclellan MD [address] [place] [address] PCP - General Internal Medicine 04/10/13 documented as of this encounter
--- OUTSIDE RECORDS SUMMARY | 2024-05-04 09:01 | XMS_ITS | Encounter Summary ---
Author Organization [employer] Address [address] [place] [address] 7t [place] [address] Care Team Providers Care Court Security Officer Name Role Phone Ricarda Mcclellan MD Primary Care Provider [phone] Reason for Visit * Reason Comments Med Refill Encounter Details Date Type Department Care Team ([facility] st Contact Info) Description 09/07/2022 Refill [facility] CHC MED & PEDS [address] [place], [place] [phone] Ricarda Mcclellan MD [address] [place] [address] Social History Tobacco Use Types Packs/Day Years [...] on filedocumented in this encounter Care Teams Court Security Officer Relationship Specialty Start Date End Date Ricarda Mcclellan MD [address] [place] [address] PCP - General Internal Medicine 04/10/13 documented as of this encounter
--- OUTSIDE RECORDS SUMMARY | 2024-05-04 09:01 | XMS_ITS | Encounter Summary ---
Author Organization [employer] Address [address] [place] [address] 7t [place] [address] Care Team Providers Care Radar Tester Name Role Phone Ricarda Mcclellan MD Primary Care Provider [phone] Encounter Details Date Type Department Care Team ([facility] st Contact Info) Description 09/21/2022 Orders Only [facility] CHC MED & PEDS [address] [place] [address] Loretta Cruz LPN Social History Tobacco Use [...] on filedocumented in this encounter Care Teams Radar Tester Relationship Specialty Start Date End Date Ricarda Mcclellan MD [address] [place] [address] PCP - General Internal Medicine 04/10/13 documented as of this encounter
--- OUTSIDE RECORDS SUMMARY | 2024-05-04 09:01 | XMS_ITS | Encounter Summary ---
Author Organization [employer] Address [address] [place] [address] 7t [place] [address] Care Team Providers Care Ocean Clam Boat Captain Name Role Phone Ricarda Mcclellan MD Primary Care Provider [phone] Reason for Visit * Reason Comments Med Refill Encounter Details Date Type Department Care Team ([facility] st Contact Info) Description 06/02/2023 Refill [facility] CHC MED & PEDS [address] [place], [place] [phone] Ricarda Mcclellan MD [address] [place] [address] Social History Tobacco Use Types Packs/Day Years [...] on filedocumented in this encounter Care Teams Ocean Clam Boat Captain Relationship Specialty Start Date End Date Ricarda Mcclellan MD [address] [place] [address] PCP - General Internal Medicine 04/10/13 documented as of this encounter
--- OUTSIDE RECORDS SUMMARY | 2024-05-04 09:01 | XMS_ITS | Clinical Summary ---
Author Organization [employer] Address [address] [facility] 7t [place] [address] Care Team Providers Care Stoker Mechanic Name Role Phone Ricarda Mcclellan MD [...] Type Department Care Team Description 04/12/2024 Telephone [facility] CHC MED & PEDS [address] [place], [place] [phone] Ricarda Mcclellan MD chart prep 03/06/2024 10:15 AM EST Office Visit [facility] MED & PEDS [address] [place] [address] Ricarda Mcclellan MD Umbilical hernia without obstruction and without gangrene (Primary Dx); Essential hypertension; Hepatic steatosis 03/06/2024 Travel 03/03/2024 Telephone [facility] MEDICINE [address] [place] [address] Ricarda Mcclellan MD Nurse Triage 02/28/2024 Telephone [facility] MED & PEDS [address] [place] [address] Ricarda Mcclellan MD Results 02/03/2024 2:30 PM EST Clinical Support [facility] MED & PEDS [address] [place] [address] Vladimir Camacho, GERARDO Essential hypertension 02/03/2024 Telephone [facility] MED & PEDS [address] [place] [address] Ricarda Mcclellan MD 02/03/2024 Refill [facility] MED & PEDS [address] [place] [address] Ricarda Mcclellan MD Primary hypertension 02/03/2024 Travel from Last 3 Months Immunizations Name [...] Quantitative, Real-Time PCR (12/23/2023 9:09 AM EDT) Hepatitis C Antibody Nonreactive Nonreactive [facility] Comment:Antibodies to HCV no t detected; does not exclude early acuteHCV infection. Blood Venous blood specimen / Unknown 12/23/2023 9:09 AM EDT 12/23/2023 2:02 PM EDT us Ricarda Mcclellan MD LAB BLOOD ORDERABLES Final Result [facility] [address] [place] [address] [phone] * HIV-1/2 Antigen and Antibodies, Fourth Generation, with Reflexes (12/23/2023 9:09 AM EDT) HIV AB/AG Nonreactive Nonreactive [facility] Comment:HIV-1 p24 Ag and/or HIV-1/HIV-2 Ab not detected.A test result that is nonreactive does not exclude thepossibility of exposure to or infection with HIV-1 and/orHIV-2. Nonreactive results in this assay for individualswith prior exposure to HIV-1 and/or HIV-2 may be due toantigen and antibody levels that are below the limit ofdetection of this assay.The [employer] [facility] HIV Ag/Ab Combo assay result andsupplemental assay results should be interpreted inconjunction with the patient's clinical presentation,history and other laboratory results. If the results areinconsistent with clinical evidence, additional testing issuggested to confirm the result. Blood Venous blood specimen / Unknown 12/23/2023 9:09 AM EDT 12/23/2023 2:02 PM EDT us Ricarda Mcclellan MD LAB BLOOD ORDERABLES Final Result [facility] [address] [place] [address] [phone] * Lipid Panel, Standard (12/23/2023 9:09 AM EDT) Triglycerides 138 <150 mg/dL [facility] Comment:Desirable Triglyceri de: less than 150 mg/dLBorderline High Triglyceride 150-199 mg/dLHigh Triglyceride: 200-499 mg/dLVery High Triglyceride: greater than or equal to 5OO mg/dL Cholesterol 126 <200 mg/dL [facility] Comment:Desirable Cholestero l: less than 200 mg/dLBorderline High Cholesterol: 200-239 mg/dLHigh Cholesterol: greater than 239 mg/dL LDL Cholesterol Calculated 53 <100 mg/dL [facility] Comment:Desirable LDL: less than 100 mg/dLNear Optimal/Above Optimal LDL: 110- 129 mg/dLBorderline High LDL: 130-159 mg/dLHigh LDL: 160-189 mg/dLVery High LDL: greater than or equal to 190 mg/dL HDL Cholesterol 46 >40 mg/dL [facility] Comment:Desirable HDL: great er than 40 mg/dL Note: This HDL assay may give artificially low results in patients with liver disease. Blood Venous blood specimen / Unknown 12/23/2023 9:09 AM EDT 12/23/2023 2:02 PM EDT us Ricarda Mcclellan MD LAB BLOOD ORDERABLES Final Result [facility] [address] [place] [phone] * Cologuard?? colon cancer screening (12/11/2023 11:04 AM EDT) Cologuard Result Negative Negative 12/16/19 7:20 AM EDT [employer] (CLIA #:[id number]) Comment: NEGATIVE TEST RESULT. A negative Cologuard [...] cancer. ??Following a negative Cologuard result, the [place] [employer] Society and U.S. Multi-Society Task Force screening guidelines recommend a Cologuard re-screening interval of 3 years. References: [place] [employer] Guideline for Colorectal Cancer Screening: https://www.cancer.org/cancer/dxflt-mcvvkj-uvdkzh/vkhhmjake-nvhnedawm-khctxme/ac s-rec ommendations.html.; Brian DK, Sena CR, Arsh UmanaK, Colorectal Cancer Screening: Recommendations for Physicians and Patients from the U.S. Multi-Society Task Force on Colorectal Cancer Screening , Am J Gastroenterology 2017; 112:2310-7575. TEST DESCRIPTION: Composite algorithmic analysis of stool [...] (Chan Deng al, N Engl J Med 2014;370(14):0268-9142.) Cologuard may produce a false negative or false positive result (no colorectal cancer or precancerous polyp present at colonoscopy follow up). A negative Cologuard test result does not guarantee the absence of CRC or advanced adenoma (pre-cancer). The current Cologuard screening interval is every 3 years. ([place] [employer] and U.S. Multi-Society Task Force). Cologuard performance data in a 10,000 patient pivotal study using colonoscopy as the reference method can be accessed at the following location: www.[employer].com/results. Additional description of the Cologuard test process, warnings and precautions can be found at www.colTiempo Developmentrd.com. Stool specimen (specimen) 12/11/2023 11:04 AM EDT 12/13/2023 11:00 AM EDT us Ricarda Mcclellan MD LAB MOLECULAR DIAGNOSTICS O RDERABLES Final Result [employer] (CLIA #:[id number]) [address] [place] [address], * Mammography Report 1 (03/25/2021 11:30 AM EST) Anatomical Region Laterality Modality Breast Bilateral Mammography 03/25/2021 11:3 0 AM EST Narrative 03/26/2021 2:08 PM EST Refer to the Notes tab for result details [facility] Procedure: Mammography Report 1 Procedure Note Provider, MD Catalina - 06/07/2022 Refer to the Notes tab for result details [facility] Procedure: Mammography Report 1 Ricarda Mcclellan MD IMG BI PROCEDURES Final Res ult * HPV mRNA E6/E7 (06/28/2018 9:42 AM EDT) HPV mRNA E6/E7 Not Detected NOT DETECTED [facility] Comment: This test was performed using the APTIMA(R) HPV Assay ([employer] This assay detects E6/E7 viral messenger RNA (mRNA) from 14 high-risk HPV types (16,18,31,33,35,39,45,51, 52,56,58,59,66,68). For additional information please refer to: http://education.[employer]ant[employer]Hub.Lumoid/faq/TVE037n4 (This link is being provided for informational/ educational purposes only.) The analytical performance characteristics of this assay have been determined by [employer] [place], [place]. The modifications have not been cleared or approved by the FDA. This assay has been validated pursuant to the CLIA regulations and is used for clinical purposes. Test Performed by [employer] [place], [employer] [facility], [address] [place] [address] Win Hightower M.D., Ph.D., Director of Laboratories , CLIA [id number] Please note: ??Effective 11/25/2015, HPV testing will be performed using [employer]'s APTIMA test which targets mRNA. Detecting mRNA instead of DNA, as in older methods, offers significant improvements in specificity. 06/28/2018 9:42 AM EDT Arianna Flores CNM HISTORICAL/NON ORDERABLE LABS Final Result Performing Organization Address [facility]/State/[facility] Co de Phone Number [facility] Anywhere [address] from Last 3 Months or Most Recently Relevant to Health Maintenance Insurance [facility] PPO X[place] [id number] Care Teams Stoker Mechanic Relationship Specialty Start Date End Date Ricarda Mcclellan MD [address] [place] [address] X[place] [address] PCP - General Internal Medicine 04/10/13
--- OUTSIDE RECORDS SUMMARY | 2024-05-04 09:01 | XMS_ITS | Encounter Summary ---
Author Organization [employer] Address [address] [facility] 7t [place] [address] Care Team Providers Care Executive Casino Host Name Role Phone Ricarda Mcclellan MD Primary Care Provider [phone] Reason for Visit * Reason Onset Date Comments chart prep 04/12/2024 Encounter Details Date Type Department Care Team ([facility] Contact Info) Description 04/12/2024 Telephone [facility] CHC MED & PEDS [address] [place], [place] [phone] Ricarda Mcclellan MD [address] [place] [address] chart prep Social History Tobacco Use Types [...] documented as of this encounter Care Teams Executive Casino Host Relationship Specialty Start Date End Date Ricarda Mcclellan MD [address] [place] [address] PCP - General Internal Medicine 04/10/13 documented as of this encounter
== END 2024-05-04 09:00 | disposition home or self-care (01) ==
PROVIDERS: PCP Internal Medicine; Visit Provider Surgery
DX: K42.9 Umbilical hernia without obstruction or gangrene (principal)
CPT/HCPCS: 99212

== ENCOUNTER 2025-02-12 08:50 | Outpatient (REF) | payer BC, SELFPAY ==
--- OUTSIDE RECORDS SUMMARY | 2025-02-12 09:58 | XMS_ITS | Encounter Summary ---
Author Organization [employer] Address [address] [place] [address] 7 [place] [address] Care Team Providers Care Reconditioning Associate Name Role Phone Ricarda Mcclellan MD Primary Care Provider [phone] Reason for Referral * Imaging (Routine) - Closed Specialty Diagnoses / Procedures Referred By Walter menjivar Referred To Contact Radiology Diagnoses Alkaline phosphatase elevation Procedures US Abdomen Complete Ricarda Mcclellan MD [address] [place] [address] Phone: tel: fax: [address] [phone] Phone: tel: fax: Referral ID Status Reason Start Date Expiration Date Visits Re quested Visits Authorized [id number] Closed 12/23/2023 12/22/2024 1 1 Encounter Details Date Type Department Care Team (Late st Contact Info) Description 12/23/2023 Orders Only [facility] CHC MED & PEDS [address] [place], [place] [phone] Ricarda Mcclellan MD [address] [place], [place] [phone] Primary hypertension (Primary Dx); Alkaline phosphatase elevation [...] as of this encounter Plan of Treatment Upcoming Encounters Date Type Department Care Team ([facility] st Contact Info) Description 02/13/2025 2:45 PM EST Office Visit [facility] MED & PEDS [address] [place] [address] Ricarda Mcclellan MD [address] [place] [address] documented as of this encounter Procedures Procedure Name Priority Date/Time Associated Diagnosis Comments US ABDOMEN COMPLETE Routine 12/31/2023 9 :01 AM EDT Alkaline phosphatase elevation documented in this encounter Results * US Abdomen Complete (12/31/2023 9:01 AM EDT) Anatomical Region Laterality Modality Abdomen Ultrasound 12/31/2023 9:01 AM EDT Narrative 02/26/2024 12:32 PM EST [facility] Adult Primary Care [facility] [place] [address] Ultrasound Report Signed Patient: Zeny Bailon MR#: [id number] : 1965 Acct:[id number] Age/Sex: 58 / F ADM Date: 12/31/23 Loc: HO.HMGCX Attending Dr: Ricarda Mcclellan MD Ordering Physician: Ricarda Mcclellan MD Date of Service: 12/31/23 Procedure(s): US abdomen complete Accession Number(s): [id number] cc: Ricarda Mcclellan MD EXAMINATION: US ABDOMEN [...] by: Srinivas Hunter MD 02/26/2024 12:29 PM EST Dictated By: Srinivas Hunter MD Signed By: <Electronically signed by Srinivas Hunter MD in OV> 02/26/24 1229 DD/ 0901 TD/TT: 12/31/23 0918 [employer]: SS Procedure Note Donotuseinterpreter, Image - 02/26/2024 [facility] Adult Primary Care [address] [place] [address] [place] [address] Ultrasound Report Signed Patient: Alyssia Bailon#: [id number] : 1965Acct:[id number] Age/Sex: 58 / FADM Date: 12/31/23 Loc: HO.HMGCX Attending Dr: Ricarda Mcclellan MD Ordering Physician: Ricarda Mcclellan MD Date of Service: 12/31/23 Procedure(s): US abdomen complete Accession Number(s): [id number] cc: Ricarda Mcclellan MD EXAMINATION: US ABDOMEN [...] by: Srinivas Hunter MD 02/26/2024 12:29 PM [facility] Dictated By: Srinivas Hunter MD Signed By: <Electronically signed by Srinivas Hunter MD in OV> 02/26/24 1229 DD/ 0 TD/TT: 12/31/23917 Manager Web Application: PAM us Ricarda Mcclellan MD IM US PROCEDURES Final Res ult documented in this encounter Visit Diagnoses Diagnosis Primary hypertension- Primary Unspecified essential hypertension Alkaline phosphatase elevation Other nonspecific abnormal serum enzyme levels documented in this encounter Additional Health Concerns Assessment Noted Time PHQ-9 Depression Total Score: 2 12/03/19 24 2:34 PM EDT documented as of this encounter Care Teams Reconditioning Associate Relationship Specialty Start Date End Date Ricarda Mcclellan MD [address] [place] [address] PCP - General Internal Medicine 04/10/13 documented as of this encounter
--- OUTSIDE RECORDS SUMMARY | 2025-02-12 09:58 | XMS_ITS | Encounter Summary ---
Author Organization [employer] [facility] Address [address] [place] [address] Care Team Providers Care It Risk And Assurance Senior Manager Name Role Phone Ricarda Mcclellan MD Primary Care Provider [phone] Reason for Visit * Reason Comments Med Refill Encounter Details Date Type Department Care Team (Late Contact Info) Description 06/02/2023 Refill [facility] MED & PEDS [address] [place] [address] Ricarda Mcclellan MD [address] [place], [place] [phone] Social History Tobacco Use Types Packs/Day Years [...] Upcoming Encounters Date Type Department Care Team (Late Contact Info) Description 02/13/2025 2:45 PM EST Office Visit [facility] CHC MED & PEDS [address] [place] [address] Ricarda Mcclellan MD [address] [place], [place] [phone] documented as of this encounter Visit Diagnoses Not on filedocumented in this encounter Care Teams It Risk And Assurance Senior Manager Relationship Specialty Start Date End Date Ricarda Mcclellan MD [address] [place], [place] [phone] PCP - General Internal Medicine 04/10/13 documented as of this encounter
--- OUTSIDE RECORDS SUMMARY | 2025-02-12 09:58 | XMS_ITS | Encounter Summary ---
Author Organization [employer] [facility] Address [address] [place] [address], [place] [address] Care Team Providers Care Orthodontic Lab Technician Name Role Phone Ricarda Mcclellan MD Primary Care Provider [phone] Encounter Details Date Type Department Care Team (Late st Contact Info) Description 07/20/2022 Orders Only [facility] MED & PEDS [address] [place] [address] Moraima Bowman LPN Social History Tobacco Use [...] Encounters Date Type Department Care Team (Late st Contact Info) Description 02/13/2025 2:45 PM EST Office Visit [facility] MED & PEDS [address] [place] [address] Ricarda Mcclellan MD [address] [place] [address] documented as of this encounter Visit Diagnoses Not on filedocumented in this encounter Care Teams Orthodontic Lab Technician Relationship Specialty Start Date End Date Ricarda Mcclellan MD [address] [place] [address] PCP - General Internal Medicine 04/10/13 documented as of this encounter
--- OUTSIDE RECORDS SUMMARY | 2025-02-12 09:58 | XMS_ITS | Encounter Summary ---
Author Organization [employer] [facility] Address [address] [place] [address] 7 [place] [address] Care Team Providers Care Neuro Urologist Name Role Phone Ricarda Mcclellan MD Primary Care Provider [phone] Encounter Details Date Type Department Care Team (Late st Contact Info) Description 09/21/2022 Orders Only [facility] MED & PEDS [address] [place] [address] Loretta Cruz LPN Social History Tobacco Use [...] Description 02/13/2025 2:45 PM EST Office Visit [facility] MED & PEDS [address] [place] [address] Ricarda Mcclellan MD [address] [place] [address] documented as of this encounter Visit Diagnoses Not on filedocumented in this encounter Care Teams Neuro Urologist Relationship Specialty Start Date End Date Ricarda Mcclellan MD [address] [place] [address] PCP - General Internal Medicine 04/10/13 documented as of this encounter
--- OUTSIDE RECORDS SUMMARY | 2025-02-12 09:58 | XMS_ITS | Clinical Summary ---
Author Organization [employer] Address [address] [facility] [address] [place] [address] Care Team Providers Care Wire Spooler Name Role Phone Ricarda Mcclellan MD Primary Care Provider [phone] Allergies Active Allergy Reactions Criticality Noted Date Comments Cefaclor 12/03/2023 Medications rosuvastatin (Crestor) 20 MG tablet TAKE 1 TABLET BY MOUTH EVERY DAY AT BEDTIME 06/23/19 23 Active EPINEPHrine (Epipen) 0.3 MG/0.3ML injection syringeIndicatio ns:Idiopathic anaphylaxis, subsequent encounter Inject 0.3 mL (0.3 mg) as directed 1 (one) time for 1 dose. use as directed for allergic reaction and then call 911 0.3 mL 12/03/19 24 Active rosuvastatin (Crestor) 20 MG tabletIndication s:Wellness examination Take 1 tablet (20 mg) by mouth at bedtime. 30 tablet 11 12/03/19 24 Active lisinopril 30 MG tabletIndication s:Primary hypertension Take 1 tablet (30 mg) by mouth Once per day. 30 tablet 11 02/03/20 24 Active atenolol (Tenormin) 25 MG tabletIndication s:Essential hypertension TAKE 1 TABLET(25 MG) BY MOUTH DAILY 30 tablet 11 01/23/20 25 Active chlorthalidone (Hygroton) 25 MG tabletIndication s:Essential hypertension Take 1 tablet (25 mg) by mouth Once per day. 30 tablet 11 01/26/20 25 026 Active atenolol (Tenormin) 25 MG tabletIndication s:Essential hypertension Take 1 tablet (25 mg) by mouth Once per day. 30 tablet 11 01/17/20 24 025 Discontinued Active Problems Problem Noted Date Diagnosed Date Hepatic steatosis 03/06/2024 Smoking 1/2 pack a day or less 2024 Hypercholesterolemia 03/19/2021 Essential hypertension 06/08/2011 Encounters Date Type Department Care Team Description 02/01/2025 Patient Outreach [facility] [address] [place] [address] Ricarda Mcclellan MD Pre-visit Planning 01/25/2025 1:45 PM EST Office Visit [facility] [address] [place] [address] Ricarda Mcclellan MD Umbilical hernia without obstruction and without gangrene (Primary Dx); Essential hypertension; Hepatic steatosis; Hypercholesterolemia; Smoking 1/2 pack a day or less; Encounter for screening mammogram for malignant neoplasm of breast; Encounter for immunization; Anxiety; Grief 01/25/2025 Travel 01/21/2025 Refill [facility] [address] [place] [address] Ricarda Mcclellan MD Essential hypertension from Last 3 Months Immunizations Immunization Administration Dates Next Due Influenza Injectable Quadriv alant Preservative Free IIV4 MDCK 11/06/2022,11/08/2021 Influenza injectable quadriv alent IIV4 with preservative 11/08/2020,01/10/2019,12/03/2014 Influenza injectable quadriv alent preservative free 10/27/2019,01/10/2018,10/15/2016 Influenza, Split (incl. gurinder fied surface antigen) 05/19/2013 Influenza, seasonal, injecta ble, preservative free 12/03/2023,12/23/2015 Pneumococcal Conjugate PCV 20 2024 Tdap 01/25/2025,08/17/2014 Zoster, Recombinant 06/12/2021,04/02/2021 Social History Tobacco Use Types Packs/Day Years Used Date Smoking Tobacco: Every Day Cigarettes Smokeless Tobacco: Never Tobacco Cessation:Ready to Q uit: No; Counseling Given: Yes Comments:1 pack a day x the last 43 years. Depression Answer Date Recorded Patient Health Questionnaire-9 Score 11 01/25/2025 Patient Health Questionnaire-9 Score 11 01/25/2025 Last PHQ-9: Questionnaire Data Not on file 1 03/27/2024 Housing Stability Answer Date Recorded What is your housing situation today? I have constantino collins 01/25/[address] you li ve. Do you have problems with any of the following? None of the above 01/25/2025 Food Insecurity Answer Date Recorded Within the past 12 months, y ou worried that your food would run out before you got money to buy more: Never True 01/25/2025 Within the past 12 months,th e food you bought just didn't last and you didn't have enough money to get more: Never True Transportation Answer Date Recorded In the past 12 months, has l ack of transportation kept you from medical appts, meetings, work or from getting things needed for daily living? No 01/25/2025 Utilities Answer Date Recorded In the past 12 months, has t he electric, gas, oil or water company threatened to shut off services in your home? No 01/25/2025 Depression Answer Date Recorded Patient Health Questionnaire-2 Score 2 01/25/2025 Internet Access Answer Date Recorded Internet Access Q1 Yes 01/25/2025 Internet Access Q2 Not on file 01/25/2025 Comments Unknown Sex and Gender Information Value Date Recorded Sex Assigned at Female 01/12/2022 10:20 AM EDT Legal Sex Female 10:20 AM EDT Gender Identity Female 01/12/2022 10:20 AM EDT Sexual Orientation Straight 01/12/2022 10 :20 AM EDT Last Filed Vital Signs Vital Sign Reading Time Taken Comments Blood Pressure 178/99 01/25/2025 2:04 PM EST Pulse 78 01/25/2025 2:04 PM EST Temperature 36.3 C (97.3 F) 01/25/2025 1:46 PM EST Respiratory Rate 20 01/25/2025 2:04 PM EST Oxygen Saturation 97% 01/25/2025 2:04 PM EST Inhaled Oxygen Concentration - - Weight 73.9 kg (163 lb) 01/25/2025 2:04 PM EST Height 155.6 cm (5' 1.25 ) 01/25/2025 2:04 PM ES T Body Mass Index 30.55 01/25/2025 2:04 PM EST Plan of Treatment Upcoming Encounters Date Type Department Care Team (Late st Contact Info) Description 02/13/2025 2:45 PM EST Office Visit [facility] [address] [place] [address] Ricarda Mcclellan MD [address] [place] [address] Health Maintenance Due Date Last Done Comments CT Colonography 1964 Colonoscopy 1964 FIT 1964 Sigmoidoscopy 1965 Disability Screening 1964 Hepatitis A Vaccines (1 of 2 - Risk 2-dose series) 01/16/1983 Pap Smear 01/16/1985 RSV Patients and Patients Aged 60 years or older (1 - Risk 50-74 years 1-dose series) 01/16/2014 Mammogram 03/25/2023 03/25/2021, 04/11/2018 Cervical Cancer Screening 06/29/2023 HPV/Cotest 06/29/2023 06/28/2018 Hepatitis B Vaccines (1 of 3 - Risk 3-dose series) 2024 COVID-19 Vaccine ( season) 2024 03/12/2021, 08/14/2020, 07/24/2020 Influenza Vaccine (#1) 2024 , 11/06/2022, 11/08/2021, Additional history exists FOBT 12/10/2024 12/11/2023 Depression Monitoring 07/25/2025 01/25/2025, 025 Alcohol/Substance Use Screening 01/25/2026 01/25/2025 SDOH Screening 01/25/2026 01/25/2025 Tobacco Screening 01/25/2026 01/25/2025 Colorectal Cancer Screening 12/10/2026 FIT DNA/Cologuard 12/10/2026 12/11/2023 Lipid Panel 12/22/2028 12/23/2023, 06/13, 03/18/2021 DTaP/Tdap/Td Vaccines (3 - Td or Tdap) 01/25/2035 01/25/2025, 08/17/2014 Zoster Vaccines Completed 06/12/2021, 04/02/2021 HIV Screening Completed 12/23/2023, 03/18/2021 Hepatitis C [...] patient's age to complete this topic Meningococcal B Vaccine Aged Out No l onger eligible based on patient's age to complete [...] 12/23/2023 9:09 AM EDT Wellness examination LAB COLOGUARD COLON CANCER SCREEN Routine 12/11/2023 11:04 AM EDT Colon cancer screening MAMMOGRAM GENERIC Routine 03/25/2021 11: 30 AM EST [facility] HISTORICAL HPV MRNA E6/E7 Routine 06/28/2018 9:42 AM EDT from Last 3 Months or Most Recently Relevant to Health Maintenance Results * Hepatitis C Antibody with Reflex to HCV, RNA, Quantitative, Real-Time PCR (12/23/2023 9:09 AM EDT) Hepatitis C Antibody Nonreactive Nonreactive [facility] Comment:Antibodies to HCV no t detected; does not exclude early acuteHCV infection. Blood Venous blood specimen / Unknown 12/23/2023 9:09 AM EDT 12/23/2023 2:02 PM EDT us Ricarda Mcclellan MD LAB BLOOD ORDERABLES Final Result Performing Organization Address [facility] Co de Phone Number [facility] [address] [place] [address] [phone] * HIV-1/2 Antigen and Antibodies, Fourth Generation, with Reflexes (12/23/2023 9:09 AM EDT) HIV AB/AG Nonreactive Nonreactive [facility] Comment:HIV-1 p24 Ag and/or HIV-1/HIV-2 Ab not detected.A test result that is nonreactive does not exclude thepossibility of exposure to or infection with HIV-1 and/orHIV-2. Nonreactive results in this assay for individualswith prior exposure to HIV-1 and/or HIV-2 may be due toantigen and antibody levels that are below the limit ofdetection of this assay.The [employer] HIV Ag/Ab Combo assay result andsupplemental assay results should be interpreted inconjunction with the patient's clinical presentation,history and other laboratory results. If the results areinconsistent with clinical evidence, additional testing issuggested to confirm the result. Blood Venous blood specimen / Unknown 12/23/2023 9:09 AM EDT 12/23/2023 2:02 PM EDT us Ricarda Mcclellan MD LAB BLOOD ORDERABLES Final Result Performing Organization Address City/[facility]/ZIP Co de Phone Number [facility] [address] [place] [address] [phone] * Lipid Panel, Standard (12/23/2023 9:09 AM EDT) Triglycerides 138 <150 mg/dL [facility] Comment:Desirable Triglyceri de: less than 150 mg/dLBorderline High Triglyceride 150-199 mg/dLHigh Triglyceride: 200-499 mg/dLVery High Triglyceride: greater than or equal to 5OO mg/dL Cholesterol 126 <200 mg/dL [facility] Comment:Desirable Cholestero l: less than 200 mg/dLBorderline High Cholesterol: 200-239 mg/dLHigh Cholesterol: greater than 239 mg/dL LDL Cholesterol Calculated 53 <100 mg/dL [facility] Comment:Desirable LDL: less than 100 mg/dLNear Optimal/Above Optimal LDL: 110- 129 mg/dLBorderline High LDL: 130-159 mg/dLHigh LDL: 160-189 mg/dLVery High LDL: greater than or equal to 190 mg/dL HDL Cholesterol 46 >40 mg/dL [facility] Comment:Desirable HDL: great er than 40 mg/dL Note: This HDL assay may give artificially low results in patients with liver disease. Blood Venous blood specimen / Unknown 12/23/2023 9:09 AM EDT 12/23/2023 2:02 PM EDT Ricarda Mcclellan MD LAB BLOOD ORDERABLES Final Result [facility] [address] [place] [phone] * Cologuard?? colon cancer screening (12/11/2023 11:04 AM EDT) Cologuard Result Negative Negative 12/16/19 7:20 AM EDT [facility] (CLIA #:[id number]) Comment: NEGATIVE TEST RESULT. A negative Cologuard result indicates a low likelihood that a colorectal cancer (CRC) or advanced adenoma (adenomatous polyps with more advanced pre-malignant features) is present. The chance that a person with a negative Cologuard test has a colorectal cancer is less than 1 in 1500 (negative predictive value >99.9%) or has an advanced adenoma is less than 5.3% (negative predictive value 94.7%). These data are based on a prospective cross-sectional study of 10,000 individuals at average risk for colorectal cancer who were screened with both Cologuard and colonoscopy. (Chan Deng al, N Engl J Med 2014;370(14):9870-2980) The normal value (reference range) for this assay is negative. COLOGUARD RE-SCREENING RECOMMENDATION: Periodic colorectal cancer screening is an important part of preventive healthcare for asymptomatic individuals at average risk for colorectal cancer. Following a negative Cologuard result, the [place] Cancer Society and U.S. Multi-Society Task Force screening guidelines recommend a Cologuard re-screening interval of 3 years. References: [place] [employer] Guideline for Colorectal Cancer Screening: https://www.cancer.org/cancer/fudfm-gsbgsj-tssafu/fcstjrixs-qsclfnkdw-kywavbn/ac s-rec ommendations.html.; Brian DK, Sena DOE, Arsh UmanaK, Colorectal Cancer Screening: Recommendations for Physicians and Patients from the U.S. Multi-Society Task Force on Colorectal Cancer Screening , Am J Gastroenterology 2017; 112:2461-5334. TEST DESCRIPTION: Composite algorithmic analysis of stool DNA-biomarkers with hemoglobin immunoassay. Quantitative values of individual biomarkers are not [...] (Chan Deng al, N Engl J Med 2014;370(14):7330-7096.) Cologuard may produce a false negative or false positive result (no colorectal cancer or precancerous polyp present at colonoscopy follow up). A negative Cologuard test result does not guarantee the absence of CRC or advanced adenoma (pre-cancer). The current Cologuard screening interval is every 3 years. ([place] [employer] Society and U.S. Multi-Society Task Force). Cologuard performance data in a 10,000 patient pivotal study using colonoscopy as the reference method can be accessed at the following location: www.[employer].Scheduling Employee Scheduling Software/results. Additional description of the Cologuard test process, warnings and precautions can be found at www.There Corporationrd.com. Stool specimen (specimen) 12/11/2023 11:04 AM EDT 12/13/2023 11:00 AM EDT Ricarda Mcclellan MD LAB MOLECULAR DIAGNOSTICS O RDERABLES Final Result [facility] (CLIA #:[id number]) [address] [place] [address], * Mammography Report 1 (03/25/2021 11:30 AM [...] HPV mRNA E6/E7 Not Detected NOT DETECTED [facility] Comment: This test was performed using the APTIMA(R) HPV Assay ([employer] This assay detects E6/E7 viral messenger RNA (mRNA) from 14 high-risk HPV types (16,18,31,33,35,39,45,51, 52,56,58,59,66,68). For additional information please refer to: http://education.[employer].Scheduling Employee Scheduling Software/faq/XTB786l4 (This link is being provided for informational/ educational purposes only.) The analytical performance characteristics of this assay have been determined by [employer] [place], [place]. The modifications have not been cleared or approved by the FDA. This assay has been validated pursuant to the CLIA regulations and is used for clinical purposes. Test Performed by [facility] [place], [facility], [address] [place] [address] Win Hightower M.D., Ph.D., Director of Laboratories , CLIA [id number] Please note: Effective 11/25/2015, HPV testing will be performed using [employer]'s APTIMA test which targets mRNA. Detecting mRNA instead of DNA, as in older methods, offers significant improvements in specificity. 06/28/2018 9:42 AM EDT us Arianna Flores CNM HISTORICAL/NON ORDERABLE LABS Final Result Performing Organization Address City/State/[facility] Co de Phone Number [facility] [address] from Last 3 Months or Most Recently Relevant to Health Maintenance Insurance [facility] PPO Care Teams Wire Spooler Relationship Specialty Start Date End Date Ricarda Mcclellan MD [address] [place] [address] X[place] López [phone] PCP - General Internal Medicine 04/10/13
--- OUTSIDE RECORDS SUMMARY | 2025-02-12 09:58 | XMS_ITS | Encounter Summary ---
Author Organization [facility] Address [address] [place] [id number] Care Team Providers Care Brand Marketing Specialist Name Role Phone Ricarda Mcclellan MD Primary Care Provider [phone] Reason for Visit * Reason Comments Med Refill Encounter Details Date Type Department Care Team (Late Contact Info) Description 09/07/2022 Refill [facility] [address] [place] [address] Ricarda Mcclellan MD [address] [place] [address] Social History Tobacco Use Types Packs/Day Years [...] 02/13/2025 2:45 PM EST Office Visit [facility] [address] [place] [address] Ricarda Mcclellan MD [address] [place], [place] [phone] documented as of this encounter Visit Diagnoses Not on filedocumented in this encounter Care Teams Brand Marketing Specialist Relationship Specialty Start Date End Date Ricarda Mcclellan MD [address] [place], [place] [phone] PCP - General Internal Medicine 04/10/13 documented as of this encounter
[2025-02-12 14:26] LABS: MANUAL DIFF FLAG NO
[2025-02-12 14:31] LABS: Hematocrit 45.9 % (37.0-47.0); Hemoglobin 15.3 g/dl (12.0-16.0); Imm Gran Abs Auto 0.05 X10*3/uL (0.00-0.03); Imm Gran Pct Auto 0.5 % (0.0-0.4); Lymphocytes Absolute Auto 3.1 X10*3/uL (1.2-4.9); Mean Corpuscular HGB Conc 33.3 g/dl (31.0-35.0); Mean Corpuscular Hemoglobin 31.6 pg (27.0-33.0); Mean Corpuscular Volume 94.8 fL (80.0-98.0); NRBC Abs Auto 0.000 X10*3/uL (0.0-0.012); NRBC Pct Auto 0.0 /100WBC (0.0-0.2); Platelet Count 218 X10*3/uL (160-400); Red Blood Count 4.84 X10*6/uL (4.20-5.50); White Blood Count 10.5 X10*3/uL (4.8-10.8)
[2025-02-12 14:49] LABS: Alanine Aminotransferase 36 U/L (0-31); Albumin Level 4.7 g/dL (3.5-5.0); Alkaline Phosphatase 131 U/L (39-117); Anion Gap 12 (12-20); Aspartate Amino Transferase 38 U/L (5-31); Blood Urea Nitrogen 20 mg/dL (9-16); Calcium 9.4 mg/dL (8.4-10.2); Carbon Dioxide 26 mmol/L (22-29); Chloride 105 mmol/L (96-108); Cholesterol 137 mg/dL (<200); Estimated Glomerular Filt Rate > 60; HDL Cholesterol 37 mg/dL (>40); Potassium 3.3 mmol/L (3.3-5.1); Sodium 140 mmol/L (135-145); Total Protein 7.0 g/dL (6.5-8.0); Triglycerides 141 mg/dL (<150)
== END 2025-02-12 08:51 | disposition home or self-care (01) ==
LOC: HO.CHCLDS 08:50
PROVIDERS: Visit Provider Internal Medicine
DX: I10 Essential (primary) hypertension (principal); E78.00 Pure hypercholesterolemia, unspecified
CPT/HCPCS: 36415; 80053; 80061; 84443; 85025